=== PATIENT | male | born 1960 | race Caucasian/White ===

== ENCOUNTER 2019-09-28 21:45 | Inpatient (IN) | payer OTHER ==
[~2019-09-28] VITALS: Ht 182.9 cm; Wt 107.3 kg
[2019-09-28 22:45] VITALS: BP 132/75
[2019-09-28] MEDS ORDERED: ZANTAC 150MG T150 M1 PO (23:53)
[2019-09-29] VITALS (20 sets, daily range): BP systolic 96–129; BP diastolic 59–92
[2019-09-29] MEDS ORDERED: ASA81BEC PO (00:23)
[2019-09-29] MEDS ORDERED: JOINT HEALTH T1 EACH PO (00:24)
[2019-09-29] MEDS ORDERED: FISH OIL 11600 MG/5 PO (00:25)
[2019-09-29] MEDS ORDERED: ONE DAILY FOR1 EACH PO (00:25)
[2019-09-29] MEDS ORDERED: PROBIOTIC1 EAC7 PO (00:27)
[2019-09-29] MEDS ORDERED: PROAIR HFA8.5 GM INH (00:27)
[2019-09-29] MEDS ORDERED: VITAMIN D32000 UNI2 PO (00:28)
--- NOTE | 2019-09-29 08:00 | NUR ---
chart review, cm visited pt up in bed with spouse at bedside. pt supposed to be going for cath today. pt in from [facility], primary care physician dr koch. pt reported independent, work outside home. no dme. no anticipated needs.
[2019-09-29 08:13] LABS: HEMATOCRIT 47.9 % (42.0-52.0); MCHC 33.4 g/dL (28.0-37.0); MCV 95.9 fL (80.0-100.0); RBC 4.99 mil/uL (4.50-6.00); RDW 13.2 % (10.5-14.5); WBC 7.6 thou/uL (4.0-11.0)
[2019-09-29 08:35] LABS: ANION GAP 8 mmol/L (7-16); BUN 11 mg/dL (7-18); CALCIUM 9.8 mg/dL (8.5-10.1); CHLORIDE 105 mmol/L (98-107); CHOLESTEROL 246 mg/dL (<200); CO2 29 mmol/L (21-32); GLUCOSE 104 mg/dL (74-106); MAGNESIUM 2.1 mg/dL (1.8-2.4); POTASSIUM 4.3 mmol/L (3.5-5.1); SODIUM 142 mmol/L (136-145)
[2019-09-29 08:37] LABS: TROPONIN-I 3.74 ng/mL (<0.06)
[2019-09-29 08:49] LABS: HDL CHOLESTEROL 30 mg/dL (>40); LDL CHOLESTEROL 167 mg/dL (<100); TC:HDL 8.2 Ratio (Not establshd); TRIGLYCERIDE 247 mg/dL (<150); VLDL 49 mg/dL (<40)
--- NOTE | 2019-09-29 11:43 | 2DMMODE ---
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 Room #: 349 Status: routine BSA: 2.33 HR: 61 bpm BP: 106/75 mmHg Rhythm: NSR Other Information Study Quality: Good Indications Elevated Troponin Chest Pain 2D Dimensions RVDd: 36.77 mm IVSd: 10.15 (7-11mm) LVOT Diam: 22.67 (18-24mm) LVDd: 45.80 mm PWd: 8.90 (7-11mm) Ascending Ao: 33.85 (22-36mm) LVDs: 35.62 (25-40mm) Aortic Root: 34.11 mm IVC: 19.00 mm Volumes Left Atrial Volume (Systole) Single Plane 4CH: 38.30 mL Single Plane 2CH: 32.69 mL LA ESV Index: 17.00 mL/m2 Aortic Valve AoV Peak Isidro.: 1.58 m/s AO Peak Gr.: 13.28 mmHg LVOT Max P.24 mmHg LVOT Max V: 1.03 m/s JAN Vmax: 2.64 cm2 Mitral Valve E/A Ratio: 1.1 MV Decel. Time: 195.31 ms [facility] [address] [place] [address] 2 D/M-MODE ECHOCARDIOGRAM Name: CATHERINE STANFORD Room #: 213-P [facility]#: [id number] Admission: 09/28/19 Attend Phys: Nicole Lu Dec Discharge: Date of : 62 Report #: [id number] MV E Max Isidro.: 0.65 m/s MV A Isidro.: 0.58 m/s MV PHT: 56.64 ms IVRT: 115.34 ms Pulmonary Valve PV Peak Isidro.: 1.31 m/s PV Peak Gr.: 6.87 mmHg Pulmonary Vein P Vein S: 0.47 m/s P Vein A: 0.28 m/s P Vein D: 0.33 m/s P Vein A Dur.: 96.9 msec P Vein S/D Ratio: 1.42 Left Ventricle The left ventricle is normal size. There is normal LV segmental wall motion. There is normal left ventricular wall thickness. Left ventricular systolic function is normal. The left ventricular ejection fraction is within the normal range. LVEF is 55%.inf base hypokinetic The left ventricular diastolic function is normal. Right Ventricle The right ventricle is normal size. The right ventricular systolic function is normal. Atria The left atrium size is normal. The right atrium size is normal. Aortic Valve The aortic valve is normal in structure. No aortic regurgitation is present. There is no aortic valvular stenosis. Mitral Valve The mitral valve is normal in structure. There is no mitral valve regurgitation noted. No evidence of mitral valve stenosis. Tricuspid Valve The tricuspid valve is normal in structure. There is no tricuspid valve regurgitation noted. Pulmonic Valve The pulmonary valve is normal in structure. There is no pulmonic valvular regurgitation. Great Vessels The aortic root is normal in size. IVC is normal in size and [facility] [address] [place] [address] 2 D/M-MODE ECHOCARDIOGRAM Name: CATHERINE STANFORD Room #: 213-P ADM IN .R.#: [id number] Admission: 09/28/19 Attend Phys: Nicole Prieto Discharge: Date of : 62 Report #: [id number] collapses >50% with inspiration. Pericardium There is no pericardial effusion. <Conclusion> The left ventricle is normal size. LVEF is 55%.inf base hypokinetic The right ventricle is normal size. The left atrium size is normal. The aortic valve is normal in structure. There is no mitral valve regurgitation noted. There is no tricuspid valve regurgitation noted. The aortic root is normal in size. There is no pericardial effusion. <ELECTRONICALLY SIGNED> By: Son Montiel MD, FACC 09/29/19 1143 1143 1143 Son Montiel MD, FAC /INF
--- NOTE | 2019-09-29 12:33 | NUR ---
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
--- NOTE | 2019-09-29 16:08 | EKG ---
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
--- NOTE | 2019-09-29 17:51 | NUR ---
PT ADMITED FROM [facility]. VSS. DENIED HAVING PAIN OR DISCOMFORT. RIGHT GROIN INCISION C/D/I. BRUISING NOTED. NO HEMATOMA. POST CARDIAC CATH INSTRUCTIONS GIVEN TO PT. PT VERBERLISED UNDERSTANDING. ORDERS NOTED. NO CARDIAC DISTRESS NOTED. WILL CONTINUE TO MONITOR.
--- NOTE | 2019-09-29 19:39 | CATHLAB ---
[facility] [address] [place] [address] INVASIVE PROCEDURE REPORT Name: CATHERINE STANFORD Room #: 213-P [facility] ..#: [id number] Admission: 09/28/19 Attend Phys: Nicole Prieto Discharge: Date of : 62 Report #: [id number] THIS REPORT FOR: //name// APPROVED REPORT Study performed: 09/29/2019 08:40:13 Patient Details Patient Status: In-Patient Room #: The patient is a 59 year-old male Event Personnel Son Montiel Curb Machine Operator, Madeleine Forbes RN RN, Chrissie Haile RTR, LAURA Moffettub, Nancy Hicks RTR Scrub, Bernardo Gilmore, Bruno Palmer hooker laster Performed Left Heart Cath w/or w/o Coronaries [id number] [facility] Aortogram Abdominal Peripheral Angio [id number] w/wo Plasty Addl BR DIAG 1 C9601 DESADDL Indication Chest pain Procedure Narrative A PINNACLE 6FR Sheath #[id number] sheath was inserted into the RFA^. Coronary angiography was performed using coronary diagnostic catheters. The right coronary system was accessed and visualized with a JR4 catheter. The left coronary system was accessed and visualized with a JL4 catheter. The left ventricle was accessed and visualized with a PIGTAIL catheter. Left ventriculogram was performed in 30 degree projection. An aortogram of the ascending aortaabdominal aorta was performed. Closure device was deployed with a 6 Fr MYNXGRIP 6/7F #[id number]. The patient tolerated the procedure well and there were no complications associated with the procedure. There was no hematoma. Intraoperative Conscious Sedation Sedation start time: 9.32 Case end Time: 10.27 Fentanyl 50 mcg Versed 1 mg Fluoro Time: 12.23 minutes Dose: DAP 15795.00 cGycm2 1830 mGy Contrast Type and Amount: Omnipaque 190 ml [facility] [place] [address] INVASIVE PROCEDURE REPORT Name: CATHERINE STANFORD Room #: 213-P [facility] ..#: [id number] Admission: 09/28/19 Attend Phys: Nicole Prieto Discharge: Date of : 62 Report #: [id number] Hemodynamics The aortic pressure is 109/55 mmHg with a mean of 87 mmHg. The left ventricular pressure is 129/13 mmHg with a mean of mmHg. The left ventricular end diastolic pressure is 26 mmHg. PCI Technique Lesion 2 Percutaneous Coronary Intervention was performed on the lateral first diagnonal branch segment. A LAUNCHER 6FR EBU 3.5 #[id number] Guide Catheter was used to engage the ostium. A Luge Wire .014 x 182CM #[id number] Interventional Guidewire was used to cross the lesion. Balloon Dilation A Balloon catheter Sprinter OTW 2.25 x 12 #[id number] was inserted and inflated up to 3.00atm for 12seconds. Additional Inflation: 4.00atm for 19seconds. Additional Inflation: 6.00atm for 21seconds. Stent Deployment A drug-eluting stent RESOLUTE GLORIA OTW 2.25 X 12 #[id number] was inserted and inflated up to 14.00atm for 45seconds. Conclusion #1 successful PTCA stent of a proximal diagonal lesion subtotaled small to moderate size branch with a placement 2.25 x 12 Gloria resolute stent 2.4 mm ROSELINE grade 3 flow #2 attempted PTCA of a CRUISE DIRECTOR proximal dominant right coronary artery occluded briskly filled via the left system. This stenosis and occlusion does not appear recent. #3 distal left main narrowing of 40% giving rise to LAD and circumflex. #4 the LAD is moderately disease proximally and calcified giving rise to the diagonal branch that which was intervened on and was the culprit lesion for the slight troponin elevation. #5 circumflex OM nondominant with mild irregularities #6 a dominant right coronary is totally occluded failed attempted CRUISE DIRECTOR opening. This sick extensive PDA WAN system is briskly filled via the left system #7 normal left ventricular size with inferior basilar moderate to severe hypokinesis small segment ejection fraction 50-55% #8 abdominal aortogram wide patency no evidence of aneurysm single bilateral renal arteries widely patent Recommendations and plan: Continue aggressive risk factor modification. Dual antiplatelet therapy initiated. Transfer to CCU in stable condition. Follow post coronary stent protocol. [facility] [address] [place] [address] INVASIVE PROCEDURE REPORT Name: CATHERINE STANFORD JR Room #: 213-P [facility]#: [id number] Admission: 09/28/19 Attend Phys: Nicole Prieto Discharge: Date of : 62 Report #: [id number] Will treat medically. There is brisk collateral filling of the dominant right coronary system which is previously occluded. If there is significant progression of distal left main lesion would recommend revascularization by bypass. <ELECTRONICALLY SIGNED> By: Son Montiel MD, FACC 09/29/191938 38 38 Son Montiel MD, FACC /INF
[2019-09-30 03:10] VITALS: BP 103/67
[2019-09-30 03:24] LABS: HEMATOCRIT 44.2 % (42.0-52.0); HEMOGLOBIN 14.8 gm/dL (14.0-18.0); MCH 32.3 pg (26.0-34.0); MCHC 33.5 g/dL (28.0-37.0); MCV 96.6 fL (80.0-100.0); RBC 4.57 mil/uL (4.50-6.00); RDW 13.2 % (10.5-14.5); WBC 9.5 thou/uL (4.0-11.0)
[2019-09-30 03:42] LABS: ALBUMIN 3.5 g/dL (3.4-5.0); CALCIUM 8.9 mg/dL (8.5-10.1); CREATININE 1.1 mg/dL (0.7-1.3); POTASSIUM 4.4 mmol/L (3.5-5.1); TOTAL BILIRUBIN 0.4 mg/dL (<0.1-1.0); TOTAL PROTEIN 5.8 g/dL (6.4-8.2)
[2019-09-30 03:45] LABS: TROPONIN-I 1.6 ng/mL (<0.06)
--- NOTE | 2019-09-30 05:40 | NUR ---
ASSUMED PT CARE AROUND 1900. PT RESTING IN BED AFTER SEVERAL WALKS AROUND UNIT. PT HAS NO C/O PAIN. PT RIGHT GROIN SITE C/D/I WITH BRUISING. PT REFUSED PAIN MEDICATION. WILL CONTINUE TO MONITOR. PT IS PROGRESSING TOWARDS PLAN OF DISCHARGE TMRW.
[2019-09-30] MEDS ORDERED: LIPITOR40 MG PO (06:48)
[2019-09-30] MEDS ORDERED: METOPROLOL SUCC25 M1 PO (06:48)
[2019-09-30] MEDS ORDERED: ASPIRIN325 PO (06:48)
[2019-09-30] MEDS ORDERED: EFFIENT10 MG PO (06:48)
[2019-09-30 08:00] VITALS: BP 136/70
[2019-09-30 12:43] VITALS: BP 136/70
--- NOTE | 2019-09-30 12:58 | NUR ---
ASSESSMENT CHARTED. PT ALERT AND ORIENTED. VSS. DENIED HAVING PAIN OR DISCOMFORT. SEEN BY DR. ADKINS AND DR. CONRAD. ORDERS GIVEN TO DISCHARGE PT TO HOME. DISCHARGE INSTRUCTIONS GIVEN TO PT. PT VERBERLISED UNDERSTANDING. PT LEFT THE FACILITY ACCOMPANIED BY THE .
--- NOTE | 2019-09-30 15:04 | EKG ---
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
== END 2019-09-30 13:00 | disposition home or self-care (01) | DRG 246 ==
LOC: 3W 21:45 → 2N 23:01 → 3W 23:01 → 2N 09-29 10:56 → ENTRNSPT 09-30 12:45 → EDTRNSPTSTS 09-30 12:51 → 2N 09-30 13:00
PROVIDERS: Internal Medicine Cardiovascular Disease; Nurse Practitioner Acute Care; ADMIT Hospitalist
PROC: 4A023N7 Measurement of Cardiac Sampling and Pressure, Left Heart, Percutaneous Approach (ICD-10-PCS; principal; 2019-09-29)
PROC: B4101ZZ Fluoroscopy of Abdominal Aorta using Low Osmolar Contrast (ICD-10-PCS; 2019-09-29)
PROC: B2111ZZ Fluoroscopy of Multiple Coronary Arteries using Low Osmolar Contrast (ICD-10-PCS; 2019-09-29)
PROC: B2151ZZ Fluoroscopy of Left Heart using Low Osmolar Contrast (ICD-10-PCS; 2019-09-29)
PROC: 027034Z Dilation of Coronary Artery, One Artery with Drug-eluting Intraluminal Device, Percutaneous Approach (ICD-10-PCS; 2019-09-29)
PROC: B4181ZZ Fluoroscopy of Bilateral Renal Arteries using Low Osmolar Contrast (ICD-10-PCS; 2019-09-29)
DX: I21.4 Non-ST elevation (NSTEMI) myocardial infarction (principal); I50.33 Acute on chronic diastolic (congestive) heart failure; K21.9 Gastro-esophageal reflux disease without esophagitis; F17.210 Nicotine dependence, cigarettes, uncomplicated; Z79.82 Long term (current) use of aspirin; Z79.899 Other long term (current) drug therapy; Z90.49 Acquired absence of other specified parts of digestive tract; Z71.6 Tobacco abuse counseling; Z28.21 Immunization not carried out because of patient refusal
CPT/HCPCS: 10081; 10879

== ENCOUNTER → 2020-01-31 | Outpatient (CLI) | payer OTHER ==
[~2020-01-31] MED LIST: ASA81BEC PO; ASPIRIN325 PO; EFFIENT10 MG PO; FISH OIL 11600 MG/5 PO; JOINT HEALTH T1 EACH PO; LIPITOR40 MG PO; METOPROLOL SUCC25 M1 PO; ONE DAILY FOR1 EACH PO; PROAIR HFA8.5 GM INH; PROBIOTIC1 EAC7 PO; VITAMIN D32000 UNI2 PO; ZANTAC 150MG T150 M1 PO
== END ==
LOC: SJCVCIMAG 01-23 12:38
DX: I08.2 Rheumatic disorders of both aortic and tricuspid valves (principal); I25.10 Atherosclerotic heart disease of native coronary artery without angina pectoris; I10 Essential (primary) hypertension; E78.00 Pure hypercholesterolemia, unspecified; E78.5 Hyperlipidemia, unspecified; R29.898 Other symptoms and signs involving the musculoskeletal system; R53.83 Other fatigue; I25.2 Old myocardial infarction; F17.200 Nicotine dependence, unspecified, uncomplicated; Z95.5 Presence of coronary angioplasty implant and graft; Z79.82 Long term (current) use of aspirin; Z79.899 Other long term (current) drug therapy

== ENCOUNTER → 2021-03-25 | Outpatient (CLI) | payer OTHER | LOC: SJCVCIMAG 08:04 | PROVIDERS: ATTEND Internal Medicine Cardiovascular Disease | DX: I25.10 Atherosclerotic heart disease of native coronary artery without angina pectoris (principal) ==

== ENCOUNTER 2021-04-16 09:34 | Observation (INO) | payer OTHER ==
[~2021-04-16] VITALS: Ht 182.9 cm; Wt 113.4 kg
[2021-04-16 09:35] VITALS: BP 142/86
[2021-04-16 09:57] LABS: ABSOLUTE NEUTROPHILS 4.5 thou/uL (1.4-8.2); BASOPHILS 0.5 % (0.0-2.0); EOSINOPHILS 3.2 % (0.0-3.0); HEMATOCRIT 48.3 % (42.0-52.0); HEMOGLOBIN 16.8 gm/dL (14.0-18.0); LYMPHOCYTES 30.8 % (24.0-44.0); MCH 33.3 pg (26.0-34.0); MCHC 34.8 g/dL (28.0-37.0); MCV 95.7 fL (80.0-100.0); MONOCYTES 6.7 % (1.0-8.0); PLATELET COUNT 216 thou/uL (150-400); POLYS 58.8 % (36.0-66.0); RBC 5.05 mil/uL (4.50-6.00); WBC 7.6 thou/uL (4.0-11.0)
[2021-04-16 10:06] LABS: ANION GAP 10 mmol/L (7-16); BUN 11 mg/dL (7-18); CHLORIDE 101 mmol/L (98-107); CO2 26 mmol/L (21-32); GLUCOSE 184 mg/dL (74-106); POTASSIUM 3.9 mmol/L (3.5-5.1); SODIUM 137 mmol/L (136-145)
[2021-04-16 10:12] LABS: URINE BILIRUBIN NEGATIVE (Negative); URINE BLOOD NEGATIVE (Negative); URINE CLARITY CLEAR; URINE COLOR YELLOW; URINE GLUCOSE-RANDOM* NEGATIVE (Negative); URINE KETONES NEGATIVE (Negative); URINE LEUKOCYTES-REFLEX NEGATIVE (Negative); URINE NITRITE-REFLEX NEGATIVE (Negative); URINE PROTEIN (DIPSTICK) NEGATIVE (Negative); URINE UROBILINOGEN 0.2 E.U./dl (0.2-1.0)
[2021-04-16 10:16] LABS: ALBUMIN 3.9 g/dL (3.4-5.0); SGOT 26 U/L (15-37); SGPT 56 U/L (16-63); TOTAL BILIRUBIN 0.3 mg/dL (0.2-1.0); TOTAL PROTEIN 6.8 g/dL (6.4-8.2); TROPONIN-I <0.06 ng/mL (<0.06)
--- NOTE | 2021-04-16 11:39 | EKG ---
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
[2021-04-16 14:08] VITALS: BP 141/80
[2021-04-16 14:25] VITALS: BP 161/103
[2021-04-16] MEDS ORDERED: EFFIENT10 MG PO (16:05)
[2021-04-16] MEDS ORDERED: CRESTOR40 MG PO (16:06)
[2021-04-16] MEDS ORDERED: TOPROL XL25 MG PO (16:07)
--- NOTE | 2021-04-16 16:57 | NUR ---
PT IS AXOX4, PLEASANT; FAMILY AT THE BEDSIDE. VSS, AFEBRILE, SR ON MONITOR. DR ADKINS CONSULTED, DR SINGH CONSULTED. PT DENIES CHEST PAIN, STATES DIZZINESS HAS IMPROVED SINCE BEING IN ER. LOW FALL PRECAUTIONS IN PLACE. POC IS TO CONTINUE TO ASSESS PT FOR DIZZINESS/CHEST PAIN. NO CONCERNS AT THIS TIME/
--- NOTE | 2021-04-16 19:49 | NUR ---
PT IS AXOX4, PLEASANT. VSS, AFEBRILE, SR ON THE MONITOR. PT DENIES CHEST PAIN, C/O SOME HEADACHE. CT OF HEAD, CERVICAL SPINE COMPLETED. CHEST XRAY COMPLETED. DR ADKINS CONSULTED, DR SINGH CONSULTED. POC IS TO CONTINUE TO ASSESS FOR CHEST PAIN OR DIZZINESS, ONSET OF NEW SYMPTOMS. LOW FALL PRECAUTIONS IN PLACE. NO CONCERNS AT THIS TIME.
[2021-04-16 20:15] VITALS: BP 116/53
[2021-04-17 00:06] LABS: GLYCOHEMOGLOBIN (HGB A1C) 5.9 % (4.8-5.6)
[2021-04-17 01:08] VITALS: BP 97/68
[2021-04-17 04:34] LABS: ABSOLUTE NEUTROPHILS 4.7 thou/uL (1.4-8.2); ANION GAP 9 mmol/L (7-16); BASOPHILS 0.3 % (0.0-2.0); BUN 14 mg/dL (7-18); CALCIUM 8.7 mg/dL (8.5-10.1); CHLORIDE 106 mmol/L (98-107); CHOLESTEROL 137 mg/dL (<200); CO2 27 mmol/L (21-32); EOSINOPHILS 2.9 % (0.0-3.0); GLUCOSE 102 mg/dL (74-106); HDL CHOLESTEROL 40 mg/dL (>40); HEMATOCRIT 47.9 % (42.0-52.0); HEMOGLOBIN 16.6 gm/dL (14.0-18.0); LDL CHOLESTEROL 78 mg/dL (<100); LYMPHOCYTES 34.7 % (24.0-44.0); MAGNESIUM 2.1 mg/dL (1.8-2.4); MCH 33.5 pg (26.0-34.0); MCHC 34.6 g/dL (28.0-37.0); MCV 96.8 fL (80.0-100.0); MONOCYTES 8.2 % (1.0-8.0); PLATELET COUNT 208 thou/uL (150-400); POLYS 53.9 % (36.0-66.0); POTASSIUM 4.6 mmol/L (3.5-5.1); RBC 4.95 mil/uL (4.50-6.00); RDW 13.4 % (10.5-14.5); SODIUM 142 mmol/L (136-145); TC:HDL 3.4 Ratio (Not establshd); TRIGLYCERIDE 96 mg/dL (<150); VLDL 19 mg/dL (<40); WBC 8.6 thou/uL (4.0-11.0)
[2021-04-17 04:45] VITALS: BP 119/84
[2021-04-17 05:00] LABS: SERUM ASSESSMENT Clear
--- NOTE | 2021-04-17 05:33 | NUR ---
PATIENTS CARE WERE ASSUMEDAT SHIFT CHANGE. PATIENT WAS ASSESSED AND MEDS WERE PASSED. PATIENT DENIES ANY DIZZINESS THIS SHIFT AND STATED "WANTS TO GO HOME NOW." REASON FOR HIS EPISODE IS UNCLEAR. WILL CONTINUE TO ROUND. THE BED IS IN A LOWAND LOCKED POSITION
[2021-04-17 07:10] VITALS: BP 117/85
[2021-04-17] MEDS ORDERED: CELEBREX50 MG PO (09:52)
[2021-04-17 10:02] VITALS: BP 117/85
--- NOTE | 2021-04-17 10:43 | NUR ---
PATIENT DISCHARGES AT 1030. PATIENT OCCOMPANIED BY SPOUSE AND SENIOR COST ESTIMATOR. PATIENT TRANSPORTS IN WHEELCHAIR. PATIENT LEAVES WITH ALL BELONINGS.
== END 2021-04-17 11:26 | disposition home or self-care (01) ==
LOC: ER 09:34 → EROBS 12:35 → 2N 12:35
PROVIDERS: Emergency Medicine; Nurse Practitioner; ADMIT Hospitalist; ATTEND Hospitalist
DX: I25.110 Atherosclerotic heart disease of native coronary artery with unstable angina pectoris (principal); I10 Essential (primary) hypertension; I48.91 Unspecified atrial fibrillation; E78.5 Hyperlipidemia, unspecified; K21.9 Gastro-esophageal reflux disease without esophagitis; E78.00 Pure hypercholesterolemia, unspecified; F17.210 Nicotine dependence, cigarettes, uncomplicated; Z86.73 Personal history of transient ischemic attack (TIA), and cerebral infarction without residual deficits; Z79.82 Long term (current) use of aspirin; Z79.899 Other long term (current) drug therapy
CPT/HCPCS: 10081